=== PATIENT | male | born 1975 | race Caucasian/White ===

== ENCOUNTER 2023-05-08 14:46 | Outpatient (RCR) | payer BC, SELFPAY | END 2023-05-09 12:35 | disposition home or self-care (01) | LOC: PT 14:46 | PROVIDERS: Visit Provider Nurse Practitioner Family | DX: M54.2 Cervicalgia (principal) | CPT/HCPCS: 97161 ==

== ENCOUNTER 2025-06-01 15:44 | Outpatient (RCR) | payer OTHER, SELFPAY | END 2025-07-11 07:02 | disposition home or self-care (01) | LOC: PT 15:44 | PROVIDERS: Visit Provider Nurse Practitioner Family | DX: M54.12 Radiculopathy, cervical region (principal) | CPT/HCPCS: 20561; 97110; 97112; 97140; 97162 ==

== ENCOUNTER 2025-09-01 15:29 | Emergency (ER) | payer OTHER, SELFPAY ==
[2025-09-01] VITALS (48 sets, daily range): BP systolic 126–171; BP diastolic 83–123; PULSE 60–95; TEMP 36.4; O2SAT 98–100; BMI 25.8
--- NOTE | 2025-09-01 16:58 | ECG_ITS ---
The [facility] Test Date: 2025-09-01 Pat Name: MAVIS CARLOS Department: Room: - Gender: Male Wrap Yarn Sorter: : 1975 Requested By: Order Number: [id number] Reading MD: GEOVANNY FLORIAN M.D. Measurements Intervals [place] Rate: 93 P: 64 FL: 156 QRS: 85 QRSD: 86 T: 35 QT: 362 QTc: 413 Interpretive Statements 1100 Sinus rhythm 1577 with couplet ventricular premature complexes 4068 Nonspecific Twave abnormality 9140 abnormal rhythm ECG No previous ECG available for comparison Electronically Signed On 09-01-2025 17:25:57 EST by GEOVANNY FLORIAN M.D.
--- NOTE | 2025-09-01 17:05 | XR_ITS ---
The [address] [address] Patient Name: MAVIS CARLOS MRN: [id number] date: 1975 Sex: M Assigned Patient Location: ED.MAIN Current Patient Location: ED.MAIN Accession/Order Number: [id number] Exam Date: 09/01/2025 17:40 Report Date: 09/01/2025 18:37 At the request of: MATTHEW ROTH Procedure: XR chest 2V PA AND LATERAL CHEST: CLINICAL HISTORY: palpitations COMPARISON: None FINDINGS: Unremarkable cardiomediastinal silhouette. Lungs are clear. No effusion or pneumothorax. XR/XR chest 2V IMPRESSION: NO ACUTE CARDIOPULMONARY ABNORMALITY. Impression dictated by: Yao Rader M.D. 09/01/2025 6:37 PM Dictation Location: [place] [address] Electronically authenticated by: [id number] Y Date: 09/01/2025 18:37
[2025-09-01] MEDS: 0.9 % SODIUM CHLORIDE 1,000 ML 1000 ML IV (17:39)
[2025-09-01 17:45] LABS: Hematocrit 42.6 % (42.0-54.0); Hemoglobin 14.5 g/dL (14.0-18.0); Immature Granulocytes Abs Auto 0.03 10^3/uL (0.00-0.03); Immature Granulocytes Pct Auto 0.3 % (0.0-0.5); Lymphocytes Absolute Auto 1.0 10^3/uL (1.2-3.8); Mean Corpuscular HGB Conc 34.0 g/dL (29.9-35.2); Mean Corpuscular Hemoglobin 30.9 pg (25.9-34.0); Mean Corpuscular Volume 90.8 fL (80.0-94.0); Platelet Count 281 10^3/uL (150-450); Red Blood Count 4.69 10^6/uL (4.70-6.10); White Blood Count 8.7 10^3/uL (4.0-11.0)
--- OUTSIDE RECORDS SUMMARY | 2025-09-01 17:50 | XMS_ITS | Patient Health Record ---
Author Organization The [facility] in [place] Address [address] [place] [address] Care Team Providers Care Certified Shorthand Reporter Name Role Phone Inderjit BAZANAndrey Primary Care Provider Unavailabl e Reason For Referral No Information Plan Of Treatment No Information Insurance Providers Payer Name Payer Address Payer Phone Subscriber Number Group Number Insured Name Patient Relationship to Insured Coverage Start Date Coverage End Date [facility] [address] [address] [place] [address] [id number] Aris Camara Self - patient is the insured [facility] [address] [place] [id number], RachealSpouse - patient is the spouse of the insured
--- OUTSIDE RECORDS SUMMARY | 2025-09-01 17:50 | XMS_ITS | Clinical Summary ---
Author Organization [facility] Address [address] [place] [address] Care Team Providers Care Cardiothoracic Anesthesia Technician Name Role Phone Andrey Jansen MD Primary Care Provider [phone] Allergies No known active allergies Medications MedicationSigDispense QuantityRefillsLast FilledStart DateEnd DateStatus traZODone (Desyrel) 50 MG tablet Take 50 mg by mouth at bedtime.3Active Active Problems No known active problems Encounters DateTypeDepartmentCare LkcbBornylfmrgg39/12/2025Clinisync Result Encounter [facility] External Department Unsolicited Shweta Morley PA from Last 3 Months Family History RelationNameStatusCommentsFatherDeceasedMotherAliveSiblingAlive Social History Tobacco UseTypesPacks/DayYears UsedDateSmoking Tobacco: Never Tobacco Cessation:Counseling Given: Yes Alcohol UseStandard Drinks/WeekCommentsYes6 (1 standard drink = 0.6 oz pure alcohol)Sex and Gender InformationValueDate RecordedSex Assigned at BirthNot on fileLegal UlrYwvd6612/03/2022 8:28 PM EDTGender IdentityNot on fileSexual OrientationNot on file Last Filed Vital Signs Vital SignReadingTime TakenCommentsBlood Lzsmbepm934/8001 4:47 PM EST Xmzbr9683 4:47 PM ESTTemperature--Respiratory Rate--Oxygen Saturation-- Inhaled Oxygen Concentration--Kskyat59.5 kg (195 lb)10/08/2023 4:47 PM ESTHeight 175.3 cm (5' 9 )10/08/2023 4:47 PM ESTBody Mass Index28. 4:47 PM EST Plan of Treatment Not on file Procedures Procedure NamePriorityDate/TimeAssociated DiagnosisCommentsECG 12-LEAD09/01/2025 3:51 PM EST from Last 3 Months Results * ECG 12-LEAD (09/01/2025 3:51 PM EST)Anatomical RegionLateralityModalityOther Specimen (Source)Anatomical Location / LateralityCollection Method / Volume Collection TimeReceived Time09/01/2025 3:51 PM EST Narrative 09/01/2025 5:26 PM EST [facility] ?[address] ? [place] [address] ? Electrocardiograph Report ? Signed ? Patient: ARIS CAMARA J ? MR#: [id number] ?? : 1975 ?Acct:[id number] ?? Age/Sex: 49 / M ?ADM Date: ?? Loc: ER ? Attending Dr: ? Ordering Physician: Shweta Morley ?? Date of Service: 09/01/25 ?? Procedure(s): ECG 12 lead ?? Accession Number(s): [id number] ? cc: ?[facility] ? Test Date: ?2025-09-01 ?? Pat Name: ? ARIS TERRANCE ?Department: ? Room: ? - ?? Gender: ? Male ? Gasket Supervisor: ? : ?1975 ? Requested By: ?? Order Number: [id number] ?Reading MD: ?? GEOVANNY ??Gregory FLORIAN ? Measurements ?? Intervals ?[place] ? Rate: ? 93 ? P: ?64 ?? AL: ? 156 ?QRS: ?85 ?? QRSD: ? 86 ? T: ?35 ?? QT: ? 362 ? QTc: ?413 ? Interpretive Statements ?? 1100 Sinus rhythm ?? 1577 with couplet ventricular premature complexes ?? 4068 Nonspecific Twave abnormality ?? 9140 ??abnormal rhythm ECG ? No previous ECG available for comparison ?? Electronically Signed On 09-01-2025 17:25:57 EST by GEOVANNY ??Gregory FLORIAN ? Dictated By: ?GEOVANNY FLORIAN ? Signed By: ?09/01/25 1726 ? DD/ 1551 ? TD/TT: ? Medical Investigator: Procedure Note Radiology, Radiologist, MD - 09/01/2025 [place] [address] Electrocardiograph Report Signed Patient: ARIS CAMARA JMR#: [id number] : 1975Acct:[id number] Age/Sex: 49 / MADM Date: Loc: ER Attending Dr: Ordering Physician: Shweta Morley Date of Service: 09/01/25 Procedure(s): ECG 12 lead Accession Number(s): [id number] cc: [facility] Test Date: 2025-09-01 Pat Name: ARIS CAMARA Department: Room: - Gender: Male Gasket Supervisor: : 1975 Requested By: Order Number: [id number] Reading MD: GEOVANNY FLORIAN M.D. Measurements Intervals [place] Rate: 93 P: 64 AL: 156 QRS: 85 QRSD: 86 T: 35 QT: 362 QTc: 413 Interpretive Statements 1100 Sinus rhythm 1577 with couplet ventricular premature complexes 4068 Nonspecific Twave abnormality 9140 abnormal rhythm ECG No previous ECG available for comparison Electronically Signed On 09-01-2025 17:25:57 EST by GEOVANNY FLORIAN M.D. Dictated By: GEOVANNY FLORIAN Signed By:09/01/25 1726 DD/ 1551 TD/TT: Medical Investigator: Authorizing ProviderResult TypeResult StatusAmy [facility] IMAGINGFinal Result from Last 3 Months Insurance Care Teams Team MemberRelationshipSpecialtyStart DateEnd Date Andrey Jansen MD [address] [place] [address] PCP - GeneralFamily Medicine05/07/23
--- OUTSIDE RECORDS SUMMARY | 2025-09-01 17:50 | XMS_ITS | Encounter Summary ---
Author Organization [facility] Address [address] [place] [address] Care Team Providers Care Product Evangelist Name Role Phone Andrey Jansen MD Primary Care Provider [phone] Encounter Details DateTypeDepartmentCare Team (Latest Contact Info)Eikylthchzq77/12/2025Clinisync Result Encounter [facility] External [facility] Unsolicited Shweta Morley, RUPERTO [address] [place] [address] [place] [address] Social History Tobacco UseTypesPacks/DayYears UsedDateSmoking Tobacco: NeverAlcohol UseStandard Drinks/WeekCommentsYes6 (1 standard drink = 0.6 oz pure alcohol)Sex and Gender InformationValueDate RecordedSex Assigned at BirthNot on fileLegal SexMale 12/03/2022 8:28 PM EDTGender IdentityNot on fileSexual OrientationNot on file documented as of this encounter Plan of Treatment Not on file documented as of this encounter Procedures Procedure NamePriorityDate/TimeAssociated DiagnosisCommentsECG 12-LEAD09/01/2025 3:51 PM EST documented in this encounter Results * ECG 12-LEAD (09/01/2025 3:51 PM EST)Anatomical RegionLateralityModalityOther Specimen (Source)Anatomical Location / LateralityCollection Method / Volume Collection TimeReceived Time09/01/2025 3:51 PM EST Narrative 09/01/2025 5:26 PM EST [facility] ?[address] ? [place] [address] ? Electrocardiograph Report ? Signed ? Patient: TERRANCE,ARIS J ? MR#: [id number] ?? : 1975 ?Acct:[id number] ?? Age/Sex: 49 / M ?ADM Date: ?? Loc: ER ? Attending Dr: ? Ordering Physician: Shweta Morley ?? Date of Service: 09/01/25 ?? Procedure(s): ECG 12 lead ?? Accession Number(s): [id number] ? cc: ?[facility] ? Test Date: ?2025-09-01 ?? Pat Name: ? ARIS TERRANCE ?Department: ? Room: ? - ?? Gender: ? Male ? Wrecker Driver: ? : ?1975 ? Requested By: ?? Order Number: [id number] ?Reading MD: ?? GEOVANNY ??Gregory FLORIAN ? Measurements ?? Intervals ?[place] ? Rate: ? 93 ? P: ?64 ?? [place]: ? 156 ?QRS: ?85 ?? QRSD: ? [...] Dictated By: ?GEOVANNY FLORIAN ? Signed By: ?12/12/25 1726 ? DD/ 1551 ? TD/TT: ? Local Company Tanker Driver: Procedure Note Radiology, Radiologist, - 09/01/2025 [place] [address] Electrocardiograph Report Signed Patient: ARIS CAMARA JMR#: [id number] : 1975Acct:[id number] Age/Sex: 49 / MADM Date: Loc: ER Attending Dr: Ordering Physician: Shweta Morley Date of Service: 09/01/25 Procedure(s): ECG 12 lead Accession Number(s): [id number] cc: [facility] Test Date: 2025-09-01 Pat Name: ARIS CAMARA Department: Room: - Gender: Male Wrecker Driver: : 1975 Requested By: Order Number: [id number] Reading MD: GEOVANNY FLORIAN M.D. Measurements Intervals [place] Rate: 93 P: 64 [place]: 156 QRS: 85 QRSD: 86 T: 35 QT: 362 QTc: 413 Interpretive Statements 1100 Sinus rhythm 1577 with couplet ventricular premature complexes 4068 Nonspecific Twave abnormality 9140 abnormal rhythm ECG No previous ECG available for comparison Electronically Signed On 12-12-2025 17:25:57 EST by GEOVANNY FLORIAN M.D. Dictated By: GEOVANNY FLORIAN Signed By:09/01/25 1726 DD/ 1551 TD/TT: Local Company Tanker Driver: Authorizing ProviderResult TypeResult StatusAmy [facility] IMAGINGFinal Result documented in this encounter Visit Diagnoses Not on filedocumented in this encounter Care Teams Team MemberRelationshipSpecialtyStart DateEnd Date Andrey Jansen MD [address] [place] [address] PCP - GeneralFamily Medicine05/07/23documented as of this encounter
--- OUTSIDE RECORDS SUMMARY | 2025-09-01 17:50 | XMS_ITS | Clinical Summary ---
Author Organization Current [employer] s [employer] Address [id number] [address] [place] [address] Care Team Providers Care Vice President Mission Integration Name Role Phone Andrey Jansen DO Primary Care Provider [phone] Social History Tobacco UseTypesPacks/DayYears UsedDateSmoking Tobacco: Never AssessedChildcare AnswerDate SgpotfxuHwraqywztUkpxzoh52/12/2019EmploymentAnswerDate Recorded ImdbbnymreBtagbtd29/12/2019Purpose - LifeAnswerDate RecordedPurpose and direction in frphRybvztw60/11/2021Sex and Gender InformationValueDate Recorded Sex Assigned at BirthNot on fileLegal JjlQynx0304/26/2015 11:30 AM EDTGender IdentityNot on fileSexual OrientationNot on file Plan of Treatment Not on file Medical Devices Not on file Care Teams Team MemberRelationshipSpecialtyStart DateEnd Date Andrey Jansen, [address] [place], [place] [address] PCP - Slrbnmi35/27/17
[2025-09-01 18:08] LABS: Alanine Aminotransferase 39 U/L (16-63); Albumin Globulin Ratio 1.2; Albumin Level 3.9 g/dL (3.4-5.0); Alkaline Phosphatase 61 U/L (46-116); Anion Gap 9.0; Aspartate Amino Transferase 28 U/L (15-37); Blood Urea Nitrogen 10.0 mg/dL (7.0-18.0); Calcium 9.1 mg/dL (8.5-10.1); Carbon Dioxide 29.1 mmol/L (21.0-32.0); Chloride 103 mmol/L (98-107); Estimated GFR (African America >60 (>=60 mL/min/1.73m^2); Estimated GFR (Non-African Ame >60 (>=60 mL/min/1.73m^2); Globulin 3.2 g/dL; Glucose 102 mg/dL (74-106); Potassium 4.1 mmol/L (3.5-5.1); Sodium 137 mmol/L (136-145); Total Protein 7.1 g/dL (6.4-8.2)
[2025-09-01 18:18] LABS: NT Pro B Type Natriuretic Pept 16.0 pg/mL (<=900.0); Thyroid Stimulating Hormone 2.123 uIU/mL (0.358-3.740)
[2025-09-01 18:25] LABS: INR 0.97; Partial Thromboplastin Time 27.2 sec (22.3-36.2); Prothrombin Time 10.2 sec (9.0-11.6)
[2025-09-01] MEDS: ASPIRIN 325 MG TABLET PO (19:19)
--- NOTE | 2025-09-01 19:28 | ECG_ITS ---
The [facility] Test Date: 2025-09-01 Pat Name: MAVIS CARLOS Department: Room: - Gender: Male Director Loss Prevention: : 1975 Requested By: 0923 Order Number: [id number] Reading MD: GEOVANNY FLORIAN M.D. Measurements Intervals [place] Rate: 68 P: 41 [place]: 160 QRS: 77 QRSD: 86 T: 22 QT: 386 QTc: 403 Interpretive Statements 1100 Sinus rhythm 1102 Sinus arrhythmia 4068 Nonspecific Twave abnormality 9130 borderline ECG Compared to ECG 09/01/2025 15:51:23 Ventricular premature complex(es) no longer present Electronically Signed On 09-02-2025 8:58:56 EST by GEOVANNY FLORIAN M.D.
--- NOTE | 2025-09-01 19:34 | ED_ITS ---
Documented by User: Shweta Morley 09/01/25 20:25 HPI HPI - General Adult General Chief complaint: Recheck/Abnormal Lab/Rx Stated complaint: High Blood Pressure Time Seen by Provider: 09/01/25 16:58 Source: patient Mode of arrival: walk-in Limitations: no limitations History of Present Illness HPI narrative: 49-year-old healthy male presents emergency room chief complaint of elevated blood pressure and palpitation. Patient was brought to the emergency room by private car. He states he has had a lot of social issues going on at home he is going through a divorce, and also has a very stressful job at this time. He states he is in charge of a lot of things the cost of a lot of money. He has been highly stressed at home. He admits to drinking more than he normally does. He does not smell of alcohol tonight. He says he send upper respiratory infection for the last week. Patient denies chest pain today. He said he had palpitations earlier when he was arguing. Related Data Home Medications ?Medication ?Instructions ?Recorded ?Confirmed dextroamphetamine-amphetamine 15 15 mg PO .once a day 09/01/25 09/01/25 mg tablet dextroamphetamine-amphetamine 20 20 mg PO .once a day 09/01/25 09/01/25 mg tablet trazodone 50 mg tablet 50 mg PO .at bed PRN sleep 1 11/02/24 09/01/25 Allergies Allergy/AdvReac Type Severity Reaction Status Date / Time No Known Drug Allergies Allergy Verified 09/01/25 15:43 Opioid HPI Opioid Management Most Recent Opioid Data: Last NOV Pain Assessment Today, 19:57 Review of Systems ROS Status of ROS 10 or more systems reviewed and unremark able except as noted in history and below PFSH PFSH Social History Little interest or pleasure in doing things: not at all Feeling down, depressed, or hopeless: not at all Exam Narrative Exam Narrative: All Systems are negative except as noted/marked.All systems reviewed and otherwise negative Nurses note and vital signs reviewed and patient is not hypoxic. General: The patient appears well and in no apparent distress. Patient is resting comfortably on cart. Skin: Warm, dry, no pallor noted. There is no rash noted. Head: Normocephalic, atraumatic Eye: Normal conjunctiva, no drainage, EOMI. PERRL Ears, Nose, Mouth, and Throat: oral mucosa is moist. Nares patent. Mouth without vesicles. Ear canals patent. Tm's without Erythema Cardiovascular: Regular Rate and Rhythm Respiratory: Patient is in no distress, no accessory muscle use, lungs are clear to auscultation, no wheezing, rales or rhonchi Back: non-tender, no CVA tenderness bilaterally to percussion. GI: Normal bowel sounds, no tenderness to palpation, no masses appreciated. No rebound, guarding, or rigidity noted. Musculoskeletal: The patient has no evidence of calf tenderness, no pitting edema, symmetrical pulses noted bilaterally Neurological: A&O x4, normal speech Psychiatric: Cooperative Constitutional Vital Signs, click to edit/add: Last Vital Signs Temp 97.6 F 09/01/25 15:43 Pulse 65 09/01/25 20:20 Resp 12 09/01/25 20:20 BP 133/86 09/01/25 20:15 Pulse Ox 98 09/01/25 17:40 O2 Del Method Room Air 09/01/25 15:43 Course Vital Signs Vital signs: Vital Signs Temperature 97.6 F 09/01/25 15:43 Pulse Rate 95 H 09/01/25 15:43 Respiratory Rate 18 09/01/25 15:43 Blood Pressure 160/99 H 09/01/25 15:43 Pulse Oximetry 99 09/01/25 15:43 Oxygen Delivery Method Room Air 09/01/25 15:43 Temperature 97.6 F 09/01/25 15:43 Pulse Rate 65 09/01/25 20:20 Respiratory Rate 12 09/01/25 20:20 Blood Pressure 133/86 09/01/25 20:15 Pulse Oximetry 98 09/01/25 17:40 Oxygen Delivery Method Room Air 09/01/25 15:43 Medical Decision Making MDM Narrative Medical decision making narrative: 49-year-old healthy male presents emergency room chief complaint of elevated blood pressure and palpitation. Patient was brought to the emergency room by private car. He states he has had a lot of social issues going on at home he is going through a divorce, and also has a very stressful job at this time. He states he is in charge of a lot of things the cost of a lot of money. He has been highly stressed at home. He admits to drinking more than he normally does. He does not smell of alcohol tonight. He says he send upper respiratory infection for the last week. Patient denies chest pain today. He said he had palpitations earlier when he was arguing. Patient presenting here with a chief complaint of elevated blood pressure. He does not take any blood pressure medications nor does he have any blood pressure medications or other medications that he takes normally. He denies any cardiac history. Upon arrival to the emergency room chest pain workup was started. EKG was obtained and blood work was obtained. Initial troponin came back elevated at 91.7, repeat 1 hour and a half later was 93.8. Patient continues to say he does not have any pain but states he had pressure in his chest today that he thought was from his cold. With elevated troponin patient was medicated with aspirin nitro and morphine. Due to the increased elevation in the slight increase from his repeat troponin I did speak to loader semiconductor dies at [facility] who agrees to see this patient on consult and do a stress test on him sometime this or maybe Thursday at the hospital. I am awaiting for the hospitalist to call me back to get this patient room. Patient's recent blood pressure is 133/86 pulse is 65 and respirations are 12. Patient is comfortable at this time denies any chest pain or shortness of breath. Differential Diagnosis Differential Diagnosis: chest pain, hypertension Medical Records Medical records reviewed: Yes I reviewed the patient's medical records Lab Data Lab results reviewed: Yes I reviewed the patient's lab results Labs: Lab Results 09/01/25 09/01/25 09/01/25 Range/Units 17:29 17:58 18:52 WBC 8.7 (4.0-11.0) 10^3/uL RBC 4.69 L (4.70-6.10) 10^6/uL Hgb 14.5 (14.0-18.0) g/dL Hct 42.6 (42.0-54.0) % MCV 90.8 (80.0-94.0) fL MCH 30.9 (25.9-34.0) pg MCHC 34.0 (29.9-35.2) g/dL RDW 13.2 (11.0-15.0) % Plt Count 281 (150-450) 10^3/uL MPV 9.1 L (9.5-13.5) fL Neut % (Auto) 77.0 H (43.0-75.0) % Lymph % (Auto) 11.4 L (20.5-60.0) % Bullock % (Auto) 9.9 (1.7-12.0) % Eos % (Auto) 0.8 L (0.9-7.0) % Baso % (Auto) 0.6 (0.2-2.0) % Neut # (Auto) 6.7 H (1.4-6.5) 10^3/uL Lymph # (Auto) 1.0 L (1.2-3.8) 10^3/uL Bullock # (Auto) 0.9 H (0.3-0.8) 10^3/uL Eos # (Auto) 0.1 (0.0-0.7) 10^3/uL Baso # (Auto) 0.1 (0.0-0.1) 10^3/uL Abs Immat Gran (auto) 0.03 (0.00-0.03) 10^3/uL Imm/Tot Granulo (auto) 0.3 (0.0-0.5) % PT 10.2 (9.0-11.6) sec INR 0.97 APTT 27.2 (22.3-36.2) sec Sodium 137 (136-145) mmol/L Potassium 4.1 (3.5-5.1) mmol/L Chloride 103 (98-107) mmol/L Carbon Dioxide 29.1 (21.0-32.0) mmol/L Anion Gap 9.0 BUN 10.0 (7.0-18.0) mg/dL Creatinine 0.91 (0.70-1.30) mg/dL Est GFR ( Amer) >60 (>=60 mL/min/1.73m^2) Est GFR (Non-Af Amer) >60 (>=60 mL/min/1.73m^2) BUN/Creatinine Ratio 11.0 Glucose 102 (74-106) mg/dL Calcium 9.1 (8.5-10.1) mg/dL Total Bilirubin 0.6 (0.2-1.0) mg/dL AST 28 (15-37) U/L ALT 39 (16-63) U/L Alkaline Phosphatase 61 (46-116) U/L Troponin I High Sens 91.7 H* 93.8 H* (4.0-76.1) pg/mL NT-Pro-B Natriuret Pep 16.0 (<=900.0) pg/mL Total Protein 7.1 (6.4-8.2) g/dL Albumin 3.9 (3.4-5.0) g/dL Globulin 3.2 g/dL Albumin/Globulin Ratio 1.2 TSH 2.123 (0.358-3.740) uIU/mL Imaging Data Chest x-ray: Radiologist's impression: ITS Impressions Chest X-Ray 09/01/25 17:05 IMPRESSION: NO ACUTE CARDIOPULMONARY ABNORMALITY. Impression dictated by: Yao Rader M.D. 09/01/2025 6:37 PM Dictation Location[facility] Electronically authenticated by: [id number] Y Date: 09/01/2025 18:37 ECG Data Interpretation: 1551 EKG shows a sinus rhythm with a nonspecific T wave abnormality noted in 2 aVF V5 V6, no acute ST elevation or depression repeat EKG at 1928 showed a sinus rhythm sinus arrhythmia but no changes to the T wave abnormality compared to previous EKG Discharge Plan Discharge Chief Complaint: Recheck/Abnormal Lab/Rx Clinical Impression: Non-STEMI (non-ST elevated myocardial infarction) Patient Disposition: [facility] Time of Disposition Decision: 20:00 Discharge Location: [facility] Condition: Fair Mode of Transportation: EMS Documented by User: Yan Weaver DO 09/01/25 21:42 HPI HPI - General Adult General Chief complaint: Recheck/Abnormal Lab/Rx Stated complaint: High Blood Pressure Time Seen by Provider: 09/01/25 16:58 Related Data Home Medications ?Medication ?Instructions ?Recorded ?Confirmed dextroamphetamine-amphetamine 15 15 mg PO .once a day 09/01/25 09/01/25 mg tablet dextroamphetamine-amphetamine 20 20 mg PO .once a day 09/01/25 09/01/25 mg tablet trazodone 50 mg tablet 50 mg PO .at bed PRN sleep 1 11/02/24 09/01/25 Allergies Allergy/AdvReac Type Severity Reaction Status Date / Time No Known Drug Allergies Allergy Verified 09/01/25 15:43 Opioid HPI Opioid Management Most Recent Opioid Data: Last MAR Pain Assessment Today, 19:57 PFSH PFSH Social History Little interest or pleasure in doing things: not at all Feeling down, depressed, or hopeless: not at all Exam Constitutional Vital Signs, click to edit/add: Last Vital Signs Temp 97.6 F 09/01/25 15:43 Pulse 65 09/01/25 20:20 Resp 12 09/01/25 20:20 BP 133/86 09/01/25 20:15 Pulse Ox 98 09/01/25 17:40 O2 Del Method Room Air 09/01/25 15:43 Course Vital Signs Vital signs: Vital Signs Temperature 97.6 F 09/01/25 15:43 Pulse Rate 95 H 09/01/25 15:43 Respiratory Rate 18 09/01/25 15:43 Blood Pressure 160/99 H 09/01/25 15:43 Pulse Oximetry 99 09/01/25 15:43 Oxygen Delivery Method Room Air 09/01/25 15:43 Temperature 97.6 F 09/01/25 15:43 Pulse Rate 65 09/01/25 20:20 Respiratory Rate 12 09/01/25 20:20 Blood Pressure 133/86 09/01/25 20:15 Pulse Oximetry 98 09/01/25 17:40 Oxygen Delivery Method Room Air 09/01/25 15:43 Medical Decision Making [facility] Narrative Medical decision making narrative: 49-year-old healthy male presents emergency room chief complaint of elevated blood pressure and palpitation. Patient was brought to the emergency room by private car. He states he has had a lot of social issues going on at home he is going through a divorce, and also has a very stressful job at this time. He states he is in charge of a lot of things the cost of a lot of money. He has been highly stressed at home. He admits to drinking more than he normally does. He does not smell of alcohol tonight. He says he send upper respiratory infection for the last week. Patient denies chest pain today. He said he had palpitations earlier when he was arguing. Patient presenting here with a chief complaint of elevated blood pressure. He does not take any blood pressure medications nor does he have any blood pressure medications or other medications that he takes normally. He denies any cardiac history. Upon arrival to the emergency room chest pain workup was started. EKG was obtained and blood work was obtained. Initial troponin came back elevated at 91.7, repeat 1 hour and a half later was 93.8. Patient continues to say he does not have any pain but states he had pressure in his chest today that he thought was from his cold. With elevated troponin patient was medicated with aspirin nitro and morphine. Due to the increased elevation in the slight increase from his repeat troponin I did speak to loader semiconductor dies at [facility] who agrees to see this patient on consult and do a stress test on him sometime this or maybe Thursday at the hospital. I am awaiting for the hospitalist to call me back to get this patient room. Patient's recent blood pressure is 133/86 pulse is 65 and respirations are 12. Patient is comfortable at this time denies any chest pain or shortness of char ath. ATTENDING ADDENDUM: Dr. Weaver Midlevel provider was able to speak with hospitalist at [facility] who accepted the transfer. Patient had recurrence of his pain after the nitroglycerin wore off. He was given additional 2 mg of IV morphine. Furthermore, he was anticoagulated with 80 mg of subq Lovenox. FINAL IMPRESSION: #Acute NSTEMI DISPOSITION: Transferred to [facility] via EMS CONDITION: Fair Lab Data Labs: Lab Results 09/01/25 09/01/25 09/01/25 Range/Units 17:29 17:58 18:52 WBC 8.7 (4.0-11.0) 10^3/uL RBC 4.69 L (4.70-6.10) 10^6/uL Hgb 14.5 (14.0-18.0) g/dL Hct 42.6 (42.0-54.0) % MCV 90.8 (80.0-94.0) fL MCH 30.9 (25.9-34.0) pg MCHC 34.0 (29.9-35.2) g/dL RDW 13.2 (11.0-15.0) % Plt Count 281 (150-450) 10^3/uL MPV 9.1 L (9.5-13.5) fL Neut % (Auto) 77.0 H (43.0-75.0) % Lymph % (Auto) 11.4 L (20.5-60.0) % Bullock % (Auto) 9.9 (1.7-12.0) % Eos % (Auto) 0.8 L (0.9-7.0) % Baso % (Auto) 0.6 (0.2-2.0) % Neut # (Auto) 6.7 H (1.4-6.5) 10^3/uL Lymph # (Auto) 1.0 L (1.2-3.8) 10^3/uL Bullock # (Auto) 0.9 H (0.3-0.8) 10^3/uL Eos # (Auto) 0.1 (0.0-0.7) 10^3/uL Baso # (Auto) 0.1 (0.0-0.1) 10^3/uL Abs Immat Gran (auto) 0.03 (0.00-0.03) 10^3/uL Imm/Tot Granulo (auto) 0.3 (0.0-0.5) % PT 10.2 (9.0-11.6) sec INR 0.97 APTT 27.2 (22.3-36.2) sec Sodium 137 (136-145) mmol/L Potassium 4.1 (3.5-5.1) mmol/L Chloride 103 (98-107) mmol/L Carbon Dioxide 29.1 (21.0-32.0) mmol/L Anion Gap 9.0 BUN 10.0 (7.0-18.0) mg/dL Creatinine 0.91 (0.70-1.30) mg/dL Est GFR ( Amer) >60 (>=60 mL/min/1.73m^2) Est GFR (Non-Af Amer) >60 (>=60 mL/min/1.73m^2) BUN/Creatinine Ratio 11.0 Glucose 102 (74-106) mg/dL Calcium 9.1 (8.5-10.1) mg/dL Total Bilirubin 0.6 (0.2-1.0) mg/dL AST 28 (15-37) U/L ALT 39 (16-63) U/L Alkaline Phosphatase 61 (46-116) U/L Troponin I High Sens 91.7 H* 93.8 H* (4.0-76.1) pg/mL NT-Pro-B Natriuret Pep 16.0 (<=900.0) pg/mL Total Protein 7.1 (6.4-8.2) g/dL Albumin 3.9 (3.4-5.0) g/dL Globulin 3.2 g/dL Albumin/Globulin Ratio 1.2 TSH 2.123 (0.358-3.740) uIU/mL Imaging Data Chest x-ray: Radiologist's impression: ITS Impressions Chest X-Ray 09/01/25 17:05 IMPRESSION: NO ACUTE CARDIOPULMONARY ABNORMALITY. Impression dictated by: Yao Rader M.D. 09/01/2025 6:37 PM Dictation Location: [place] [address] Electronically authenticated by: [id number] Y Date: 09/01/2025 18:37 ECG Data Attestation: I personally reviewed and interpreted this ECG as follows: Discharge Plan Discharge Chief Complaint: Recheck/Abnormal Lab/Rx Clinical Impression: Non-STEMI (non-ST elevated myocardial infarction) Patient Disposition: [facility] Time of Disposition Decision: 20:00 Discharge Location: [facility] Condition: Fair Mode of Transportation: EMS
[2025-09-01] MEDS: MORPHINE SULFATE 2 MG/ML SYRINGE IV ×2 (19:57→21:51)
[2025-09-01] MEDS: NITROGLYCERIN 0.4 MG BOTTLE SL (19:58)
[2025-09-01] MEDS: ENOXAPARIN SODIUM 80 MG/0.8 ML SYRINGE SUBQ (21:50)
== END 2025-09-01 23:07 | disposition short-term general hospital (02) ==
PROVIDERS: Physician Assistant; Student in an Organized Health Care Education/Training Program; Emergency Provider Emergency Medicine
DX: I21.4 Non-ST elevation (NSTEMI) myocardial infarction (principal); Z56.6 Other physical and mental strain related to work; Z63.5 Disruption of family by separation and divorce
CPT/HCPCS: 36415; 71046; 80053; 83880; 84443; 84484; 85025; 85610; 85730; 93005; 96372; 96374; 96376; 99285; J1650; J2270